=== PATIENT | female | born 1970 | race Caucasian/White ===

== ENCOUNTER 2021-08-23 11:19 | Inpatient (IN) | payer BC, OTHER ==
[2021-08-23] MEDS ORDERED: Acetaminophen 325 MG Tab PO PRN (11:32)
[2021-08-23] MEDS ORDERED: Acetaminophen 650 MG Supp RECTAL PRN (11:32)
[2021-08-23] MEDS ORDERED: Ondansetron 4 MG/2 ML SDV IVPUSH PRN (12:00)
[2021-08-23] MEDS ORDERED: Naloxone 0.4 MG/ML SDV IV PRN (12:00)
[2021-08-23] MEDS: Dextrose 5%-Lactated Ringers 1,000 ML IV SCH ×2 (12:38→18:50)
[2021-08-23] MEDS: HYDROmorphone/Normal Saline 6 MG/30 ML PCA Vial IV PRN (12:38)
[2021-08-23] MEDS ORDERED: Calcium Carbonate 500 MG Tab.Chew PO PRN (12:44)
[2021-08-23] MEDS: Pantoprazole 40 MG Vial IVPUSH SCH (14:06)
[2021-08-23] MEDS: diphenhydrAMINE 50 MG/ML SDV IVPUSH PRN ×2 (16:21→22:41)
[2021-08-23] MEDS: traZODone 50 MG Tab PO SCH ×2 (21:17→21:20)
[2021-08-24] MEDS: HYDROmorphone/Normal Saline 6 MG/30 ML PCA Vial IV PRN ×3 (00:06→15:36)
[2021-08-24] MEDS: Dextrose 5%-Lactated Ringers 1,000 ML IV SCH ×3 (01:25→21:43)
[2021-08-24] MEDS ORDERED: Meropenem 500 MG SDV ONE (06:34)
[2021-08-24] MEDS ORDERED: cefOXitin 2 GM in Sodium Chloride 0.9% 50 ML IV ONE (07:00)
[2021-08-24] MEDS ORDERED: fentaNYL 250 MCG/5 ML SDV ONE ×2 (07:06→07:32)
[2021-08-24] MEDS ORDERED: Neostigmine Methylsulfate 1 MG/ML 5 ML Syringe ONE (07:07)
[2021-08-24] MEDS ORDERED: Succinylcholine 200 MG/10 ML MDV ONE (07:07)
[2021-08-24] MEDS ORDERED: Propofol 200 MG/20 ML SDV ONE (07:07)
[2021-08-24] MEDS ORDERED: Dexamethasone 4 MG/ML SDV ONE (07:07)
[2021-08-24] MEDS ORDERED: Ondansetron 4 MG/2 ML SDV ONE (07:07)
[2021-08-24] MEDS ORDERED: Glycopyrrolate 0.2 MG/ML 5 ML MDV ONE (07:07)
[2021-08-24] MEDS ORDERED: Rocuronium 50 MG/5 ML Vial ONE (07:07)
[2021-08-24] MEDS ORDERED: Ketamine 18 MG in Sodium Chloride 0.9% 19.82 ML IV SCH (07:30)
[2021-08-24] MEDS ORDERED: Ropivacaine 46 ML, dexAMETHasone 8 MG, EPINEPHrine 0.4 MG, Sodium Chloride 0.9% 31.6 ML NERVRT SCH ×4 (07:30)
[2021-08-24] MEDS ORDERED: Ketamine 500 MG/5 ML MDV IV SCH (07:30)
[2021-08-24] MEDS ORDERED: Scopolamine 1.5 MG Transdermal Patch ONE (07:40)
[2021-08-24] MEDS ORDERED: Lactated Ringers 1,000 ML ONE (07:40)
[2021-08-24] MEDS: Bupivacaine 0.5% 50 ML MDV ONE ×2 (08:00→08:27)
[2021-08-24] MEDS: Lidocaine 1% with EPINEPHrine 1:100,000 50 ML MDV ONE ×2 (08:00→08:28)
[2021-08-24] MEDS ORDERED: Meropenem 500 MG SDV IRR ONE (08:20)
[2021-08-24] MEDS: ARIPiprazole 10 MG Tab PO SCH (09:48)
[2021-08-24] MEDS: FLUoxetine 20 MG Cap PO SCH (09:50)
[2021-08-24] MEDS ORDERED: Metoclopramide 10 MG/2 ML SDV IVPUSH PRN (11:00)
[2021-08-24] MEDS ORDERED: hydrOXYzine HCL 100 MG/2 ML SDV IM PRN (11:00)
[2021-08-24] MEDS ORDERED: Labetalol 20 MG/4 ML Syringe IVPUSH PRN (11:00)
[2021-08-24] MEDS ORDERED: Acetaminophen 500 MG Tab PO PRN (11:00)
[2021-08-24] MEDS: cefOXitin 2 GM in Sodium Chloride 0.9% 50 ML IV SCH ×2 (14:39→20:16)
[2021-08-24] MEDS: Pantoprazole 40 MG Vial IVPUSH SCH (14:40)
[2021-08-24] MEDS: Acetaminophen 500 MG Tab PO SCH ×2 (14:41→21:51)
[2021-08-24] MEDS: Heparin Sodium 5,000 Units/ML Vial SUBCUT SCH (15:30)
[2021-08-24] MEDS ORDERED: MVI, Adult with Vitamin K 10 ML, Thiamine 200 MG, Zinc/Copper/Manganese/Selenium 1 ML i... IV SCH ×4 (16:00)
[2021-08-24] MEDS: diphenhydrAMINE 50 MG/ML SDV IVPUSH PRN ×2 (18:17→22:43)
[2021-08-24] MEDS: Celecoxib 200 MG Cap PO SCH (21:51)
[2021-08-25] MEDS: HYDROmorphone/Normal Saline 6 MG/30 ML PCA Vial IV PRN ×3 (00:04→16:41)
[2021-08-25] MEDS: cefOXitin 2 GM in Sodium Chloride 0.9% 50 ML IV SCH ×2 (02:17→07:45)
[2021-08-25] MEDS ORDERED: Iopamidol 612 MG/ML 50 ML SDV PO STA (02:23)
[2021-08-25] MEDS: Heparin Sodium 5,000 Units/ML Vial SUBCUT SCH ×2 (03:20→16:20)
[2021-08-25] MEDS: diphenhydrAMINE 50 MG/ML SDV IVPUSH PRN ×4 (03:21→19:46)
[2021-08-25] MEDS: Dextrose 5%-Lactated Ringers 1,000 ML IV SCH (03:58)
[2021-08-25] MEDS: Acetaminophen 500 MG Tab PO SCH ×3 (06:15→21:17)
[2021-08-25] MEDS ORDERED: Ondansetron 4 MG Tab.DIS PO PRN (08:01)
[2021-08-25] MEDS ORDERED: Dextrose 5%-Lactated Ringers 1,000 ML IV SCH (08:15)
[2021-08-25] MEDS: ARIPiprazole 10 MG Tab PO SCH (09:25)
[2021-08-25] MEDS: Docusate Sodium 100 MG Cap PO SCH ×2 (09:26→21:18)
[2021-08-25] MEDS: Celecoxib 200 MG Cap PO SCH ×2 (09:26→21:17)
[2021-08-25] MEDS: Bisacodyl 5 MG Tab PO SCH ×2 (09:27→21:18)
[2021-08-25] MEDS: FLUoxetine 20 MG Cap PO SCH (09:27)
[2021-08-25] MEDS: Amphetamine/Dextroamphetamine Salts 10 MG Tab PO PRN ×2 (11:44→15:07)
[2021-08-25] MEDS: Pantoprazole 40 MG Vial IVPUSH SCH (15:47)
[2021-08-25] MEDS ORDERED: MVI, Adult with Vitamin K 10 ML, Thiamine 200 MG, Zinc/Copper/Manganese/Selenium 1 ML i... IV SCH ×4 (16:00)
[2021-08-25] MEDS: Pantoprazole 40 MG Tab.CR PO SCH (16:20)
[2021-08-26] MEDS: diphenhydrAMINE 50 MG/ML SDV IVPUSH PRN ×2 (00:45→11:18)
[2021-08-26] MEDS: Heparin Sodium 5,000 Units/ML Vial SUBCUT SCH ×2 (03:10→16:49)
[2021-08-26] MEDS: Acetaminophen 500 MG Tab PO SCH ×3 (05:06→21:16)
[2021-08-26] MEDS: Cyclobenzaprine 10 MG Tab PO PRN ×3 (05:54→22:53)
[2021-08-26] MEDS ORDERED: Sodium Chloride 0.9% 10 ML Syringe IV PRN (08:16)
[2021-08-26] MEDS: Amphetamine/Dextroamphetamine Salts 10 MG Tab PO PRN ×2 (08:18→12:44)
[2021-08-26] MEDS: HYDROmorphone 2 MG Tab PO PRN ×4 (08:23→21:16)
[2021-08-26] MEDS: ARIPiprazole 10 MG Tab PO SCH (08:28)
[2021-08-26] MEDS: Docusate Sodium 100 MG Cap PO SCH ×2 (08:29→21:16)
[2021-08-26] MEDS: Celecoxib 200 MG Cap PO SCH ×2 (08:29→21:16)
[2021-08-26] MEDS: FLUoxetine 20 MG Cap PO SCH (08:30)
[2021-08-26] MEDS ORDERED: Cyanocobalamin (Vitamin B12) 1,000 MCG/ML SDV IM ONE (09:00)
[2021-08-26] MEDS: Pantoprazole 40 MG Tab.CR PO SCH (16:49)
[2021-08-27] MEDS: Heparin Sodium 5,000 Units/ML Vial SUBCUT SCH (04:57)
[2021-08-27] MEDS: HYDROmorphone 2 MG Tab PO PRN ×2 (04:57→09:08)
[2021-08-27 04:58] VITALS: BP 121/87; PULSE 79
[2021-08-27] MEDS: Acetaminophen 500 MG Tab PO SCH (05:00)
[2021-08-27] MEDS: Cyclobenzaprine 10 MG Tab PO PRN (07:51)
[2021-08-27] MEDS: ARIPiprazole 10 MG Tab PO SCH (08:02)
[2021-08-27] MEDS: Celecoxib 200 MG Cap PO SCH (08:02)
[2021-08-27] MEDS: Docusate Sodium 100 MG Cap PO SCH (08:02)
[2021-08-27] MEDS: FLUoxetine 20 MG Cap PO SCH (08:02)
== END 2021-08-27 09:30 | disposition home or self-care (01) | DRG 330 ==
LOC: JP.MS 11:19
PROVIDERS: ADMIT Surgery; ATTEND Surgery
PROC: 0WQF0ZZ Repair Abdominal Wall, Open Approach (ICD-10-PCS; principal; 2021-08-24)
PROC: 0DNU0ZZ Release Omentum, Open Approach (ICD-10-PCS; principal; 2021-08-24)
PROC: 0WUF0JZ Supplement Abdominal Wall with Synthetic Substitute, Open Approach (ICD-10-PCS; principal; 2021-08-24)
PROC: 0DT80ZZ Resection of Small Intestine, Open Approach (ICD-10-PCS; principal; 2021-08-24)
DX: K95.89 Other complications of other bariatric procedure (principal); K56.1 Intussusception; K43.0 Incisional hernia with obstruction, without gangrene; K56.50 Intestinal adhesions [bands], unspecified as to partial versus complete obstruction; F32.A Depression, unspecified; F41.9 Anxiety disorder, unspecified; Z98.84 Bariatric surgery status; G47.33 Obstructive sleep apnea (adult) (pediatric); E66.9 Obesity, unspecified; K21.9 Gastro-esophageal reflux disease without esophagitis; F90.9 Attention-deficit hyperactivity disorder, unspecified type; I25.10 Atherosclerotic heart disease of native coronary artery without angina pectoris; Y83.9 Surgical procedure, unspecified as the cause of abnormal reaction of the patient, or of later complication, without mention of misadventure at the time of the procedure; Z87.891 Personal history of nicotine dependence; Z95.1 Presence of aortocoronary bypass graft; Z68.32 Body mass index [BMI] 32.0-32.9, adult
CPT/HCPCS: 36415; 74240; 74240-26; 80053; 82306; 82525; 82607; 82728; 82746; 83735; 84100; 84425; 84590; 84630; 85025; 88302; 88307; A9270-GY; C9113; J0171; J0330; J0694; J1100; J1170; J1200; J1644; J2185; J2405; J2704; J2710; J2795; J3010; J3411; J3420; J3490; J7120; J7121; Q9967